=== PATIENT | female | born 1930 ===

== ENCOUNTER 2017-05-18 08:28 | Outpatient (CLI) | payer OTHER ==
[~2017-05-18] VITALS: Ht 152.4 cm; Wt 74.8 kg
[~2017-05-18 08:28] MED LIST: MACROBID 100 M100 MG PO; ULTRACET PO
== END 2017-05-18 08:40 | disposition home or self-care (01) ==
LOC: OFIC 805 08:28
DX: H72.2X2 Other marginal perforations of tympanic membrane, left ear (principal); H90.72 Mixed conductive and sensorineural hearing loss, unilateral, left ear, with unrestricted hearing on the contralateral side; H70.13 Chronic mastoiditis, bilateral; H61.23 Impacted cerumen, bilateral